=== PATIENT | female | born 1970 | race Caucasian/White ===

== ENCOUNTER 2018-09-17 20:59 | Emergency (ER) | payer MEDICAID ==
[~2018-09-17] VITALS: Ht 167.6 cm; Wt 68.0 kg
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
[2018-09-17] MEDS ORDERED: ACETAMINOPHEN 325 MG TABLET PO ONE (21:30)
--- NOTE | 2018-09-17 21:33 | NUR ---
Patient does not wish to proceed with medical care recommended by ( ). Patient given information related to possible complications, up to and including , which could occur as a result of leaving the hospital at this time. Patient verbalizes understanding of risks involved due to leaving against medical advice. Patient has signed AMA form.
[2018-09-17 21:37] VITALS: BP 128/78
== END 2018-09-17 21:38 | disposition left against medical advice (07) ==
LOC: ER 20:59
DX: M25.512 Pain in left shoulder (principal); M54.2 Cervicalgia; M79.605 Pain in left leg; M79.604 Pain in right leg; M54.5 Low back pain; M54.6 Pain in thoracic spine; V49.09XA Driver injured in collision with other motor vehicles in nontraffic accident, initial encounter; Y93.89 Activity, other specified; Y92.488 Other paved roadways as the place of occurrence of the external cause; Y99.8 Other external cause status
CPT/HCPCS: Z7502

== ENCOUNTER 2018-09-17 22:23 | Emergency (ER) | payer MEDICAID ==
[~2018-09-17] VITALS: Ht 167.6 cm; Wt 60.3 kg
--- NOTE | 2018-09-18 | NUR ---
PT TAKEN TO XR.
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
--- NOTE | 2018-09-18 00:57 | NUR ---
Patient discharged to home in stable condition. Written rx and verbal after care instructions given. Patient verbalizes understanding of instruction.
[2018-09-18 00:58] VITALS: BP 126/78
== END 2018-09-18 00:59 | disposition home or self-care (01) ==
LOC: ER 22:24
DX: M25.512 Pain in left shoulder (principal); M54.5 Low back pain; M54.6 Pain in thoracic spine; M79.605 Pain in left leg; M79.604 Pain in right leg; V49.49XA Driver injured in collision with other motor vehicles in traffic accident, initial encounter; Y93.89 Activity, other specified; Y92.488 Other paved roadways as the place of occurrence of the external cause; Y99.8 Other external cause status
CPT/HCPCS: 72074-TC; 72100-TC; 73030-TC